=== PATIENT | male | born 1965 | race Caucasian/White ===

== ENCOUNTER 2024-07-18 00:51 | Day surgery (SDC) | payer BC, SELFPAY ==
[2024-07-11 10:09] VITALS: BMI 33.5
--- NOTE | 2024-07-11 10:29 | PC.NURSE ---
Spoke with _PATIENT_ regarding medication _PLAVIX_. _PATIENT_verbalizes understanding that the last dose is to be taken on _07/10/2024_ and the Endoscopist will instruct them when to restart after the procedure.
--- OUTSIDE RECORDS SUMMARY | 2024-07-18 00:54 | XMS_ITS | Clinical Summary ---
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 90 Cap 3 06/02/2016 Active Active Problems No known active problems Social History Tobacco Use Types Packs/Day Years Used Date Smoking Tobacco: Every Day Cigarettes 1 6 Smokeless Tobacco: Never Tobacco Cessation:Ready to Q uit: No; Counseling Given: No Alcohol Use Standard Drinks/Week Comments Yes 6 (1 standard drink = 0.6 oz pur e alcohol) Sexually Active Control Partners Comments Yes None Female Sex and Gender Information Value Date Recorded Sex Assigned at Not on file Legal Sex Male 11:38 AM [employer] Gender Identity Not on file Sexual Orientation Not on file Last Filed Vital Signs Vital Sign Reading Time Taken Comments Blood Pressure 122/78 06/02/2016 11:59 AM [employer] Pulse 78 06/02/2016 11:59 AM [employer] Temperature 36.3 ??C (97.4 ??F) 06/02/2016 11:[address] Respiratory Rate 18 06/02/2016 11:59 AM [employer] Oxygen Saturation 97% 06/02/2016 11:59 AM [employer] Inhaled Oxygen Concentration - - Weight 102.1 kg (225 lb) 06/02/2016 11:59 AM [employer] Height 180.3 cm (5' 11 ) 06/02/2016 11:59 AM [employer] Body Mass Index 31.38 06/02/2016 11:59 AM [employer] Plan of Treatment Health Maintenance Due Date Last Done Comments Hepatitis C Virus (HCV) Screening 1965 TdaP Immunization 1965 Hepatitis B Immunization (1 of 3 - 19+ 3-dose series) 1984 Colonoscopy 2010 Colorectal Cancer Screening 2010 Cologuard 2015 Immunochemical Fecal Occult Blood 2015 Pneumococcal Immunization (5 0+ years) (1 of 1 - PCV) 2015 Zoster Immunization (1 of 2) 2015 PSA Discussion 2020 Influenza Immunization (#1) 2024 SARS-COV-2 Immunization (1 - season) 2024 Respiratory Syncytial Virus (RSV) Immunization (Adult) (1 - 1-dose 75+ series) 2040 Meningococcal Immunization (ACWY) Aged Out No longer eligible based on patient's age to complete this topic Pneumococcal Immunization Combined Aged Out No longer eligible based on patient's age to complete this topic Rotavirus Immunization Aged Out No lo nger eligible based on patient's age to complete this topic Care Teams Heavy Forger Helper Relationship Specialty Start Date End Date Ha Shields MD [address] [facility] [address] [place] [id number] PCP - General Internal Medicine 06/02/16
--- OUTSIDE RECORDS SUMMARY | 2024-07-18 00:54 | XMS_ITS | CONTINUITY OF CARE DOCUMENT ---
Author Name shaista, shaista Address Unknown Organization [facility] Address [address] [place] [address] Phone [phone] Care Team Providers Care Cocoa Room Operator Name Role Phone Rosemary Smith MD Unavailable JUICE ALFARO MD Unavailable JUICE ALFARO MD Unavailable [phone] PROBLEMS Condition Status Date Provider Notes Hyperlipidemia active Rusty Jimenez MD PREDIABETES; active Rusty Jimenez MD CHEST PAIN--echo ef 66%, nl perfusion, marked htn, 03/2021 active Rosemary Smith MD Tobacco abuse active Rosemary Smith MD Snoring active Rosemary Smith MD FAMILY HISTORY OF HEART DISEASE active Noe Smith MD Abnormal EKG active Rosemary Smith MD Obesity active Rosemary Smith MD CAD s/p PTCA LENI x2 in dRCA and diag 06/17/18 active Elfego Santa MD Essential hypertension active Toney Antonio ENCOUNTERS Date Type Provider Location Encounter Diag nosis - In-person encounter Office Visit Rosemary Smith MD [facility] Essential hypertension - In-person encounter Office Visit Rosemary Smith MD [facility] CHEST PAIN--echo ef 66%, nl perfusion, marked htn, 03/2021 - In-person encounter Office Visit Rosemary Smith MD [facility] CHEST PAIN--echo ef 66%, nl perfusion, marked htn, 03/2021 - In-person encounter Office Visit Rosemary Smith MD [facility] - In-person encounter Office Visit Rosemary Smith MD [facility] - In-person encounter Office Visit Elfego Santa MD [facility] CAD s/p PTCA LENI x2 in dRCA and diag 06/17/18 - In-person encounter Office Visit Rosemary Smith MD [facility] CHEST PAIN--echo ef 66%, nl perfusion, marked htn, 03/2021Tobacco abuseSnoringFAMILY HISTORY OF HEART DISEASEAbnormal EKGObesity VITAL SIGNS Date Observation Value Provider Body Mass Index (Ratio) 33.33 kg/m2 Noe Smith MD blood pressure, cuff size large De vinod Ocasio blood pressure, diastolic 90 mm[Hg] De vinod Amarjit blood pressure, systolic 160 mm[Hg] [facility] ji Amarjit oxygen saturation, oximetry 97 % Britt Ocasio pulse rate 100 /min Britt acuña respiratory rate E&M 16 /min Yudy Ocasio weight E&M 239 [lb_av] Britt acuña height E&M 71 [in_i] Britt acuña Body Mass Index (Ratio) 36.26 kg/m2 Noe Smith MD blood pressure, cuff size large Tr enrico Urrutia blood pressure, diastolic 88 mm[Hg] Tr enrico Urrutia blood pressure, systolic 170 mm[Hg] Try anne-marie Urrutia oxygen saturation, oximetry 97 % Rocio Urrutia respiratory rate E&M 18 /min Rocio Urrutia pulse rate 84 /min Rocio Urrutia weight E&M 260 [lb_av] Rocio Urrutia height E&M 71 [in_i] Darylanne-marie Urrutia Body Mass Index (Ratio) 35.84 kg/m2 Noe Smith MD blood pressure, diastolic 80 mm[Hg] Li nkLogic blood pressure, systolic 140 mm[Hg] Jennifer kLogic blood pressure, cuff size regular Cy breanna Betancourt blood pressure, diastolic 80 mm[Hg] Cy breanna Betancourt blood pressure, systolic 140 mm[Hg] Yanna nancy Betancourt oxygen saturation, oximetry 96 % Di Betancourt respiratory rate E&M 16 /min Dinancy Betancourt pulse rate 88 /min Di Jeronimo l weight E&M 257 [lb_av] Dinancy Lowebel l height E&M 71 [in_i] Di Lowebel l Body Mass Index (Ratio) 35.90 kg/m2 Noe Smith MD blood pressure, diastolic 92 mm[Hg] James Maomarjan Xavier blood pressure, systolic 158 mm[Hg] Sugey Xavier oxygen saturation, oximetry 97 % Isabel Xavier respiratory rate E&M 18 /min Power alvarez Xavier pulse rate 80 /min Isabel Al delfina weight E&M 257.4 [lb_av] Isabel Bishop chikis height E&M 71 [in_i] Isabel Al tianon Body Mass Index (Ratio) 36.40 kg/m2 Noe Smith MD blood pressure, diastolic 80 mm[Hg] Demar Matta blood pressure, systolic 118 mm[Hg] Esa Wattersam oxygen saturation, oximetry 98 % Jewel Matta respiratory rate E&M 16 /min Jewel Matta pulse rate 83 /min Posen Matta weight E&M 261 [lb_av] Posen Matta height E&M 71 [in_i] Jewel Matta Body Mass Index (Ratio) 36.12 kg/m2 Pedro Santa MD blood pressure, diastolic 80 mm[Hg] Da felipa Morgan blood pressure, systolic 132 mm[Hg] Dac ia Morgan oxygen saturation, oximetry 94 % Mireya Morgan respiratory rate E&M 16 /min Mireya V oss pulse rate 76 /min Mireya Morgan weight E&M 259 [lb_av] Mireya Morgan height E&M 71 [in_i] Mireya Morgan Body Mass Index (Ratio) 36.26 kg/m2 Noe Smith MD blood pressure, cuff size small Cy breanna Betancourt blood pressure, diastolic 88 mm[Hg] Cy breanna Betancourt blood pressure, systolic 140 mm[Hg] Yanna nancy Betancourt oxygen saturation, oximetry 97 % Di Betancourt respiratory rate E&M 16 /min Di Betancourt pulse rate 72 /min Di Lowebel l weight E&M 260 [lb_av] Di Lowebel l height E&M 71 [in_i] Di Campbel l ALLERGIES No Known Drug Allergies RESULTS Date Observation Value Provider Reference Range Interpretation Location hemoglobin A1C, blood, as % of total hemoglobin 6.3 % [facility] 4.8-5.6 High lipoprotein, beta, serum, point, quantitative, calculated 51 mg/dL [facility] 0-99 HDL cholesterol, serum 41 mg/dL [facility] >39 triglyceride, serum, random 110 mg/dL [facility] 0-149 cholesterol, serum 112 mg/dL [facility] [phone]/11/ 25 basophil count, absolute 0.1 x10E3/uL [facility] 0.0-0.2 Eosinophil Absolute Count 0.2 X10E3/UL [facility] 0.0-0.4 monocyte count, blood, automated 0.7 X10E3/UL [facility] 0.1-0.9 lymphocyte count, blood, automated 2.6 X10E3/UL [facility] 0.7-3.1 Absolute Neutrophils 5.8 X10E3/UL [facility] 1.4-7.0 basophils as percent of blood leukocytes 1 % [facility] Not Estab. eosinophils as percent of blood leukocytes 2 % [facility] Not Estab. monocytes as percent of blood leukocytes 7 % [facility] Not Estab. lymphocytes as percent of blood leukocytes 28 % [facility] Not Estab. neutrophils as percent of blood leukocytes 62 % [facility] Not Estab. platelet count 254 X10E3/UL [facility] [phone]/11/ 25 red blood cell distribution width 12.4 % [facility] 11.6-15.4 mean corpuscular hemoglobin concentration, RBC 35.0 G/DL [facility] 31.5-35.7 mean corpuscular hemoglobin, RBC 32.9 pg [facility] 26.6-33.0 mean corpuscular volume, RBC 94 fL [facility] 79-97 hematocrit, blood 42.3 % [facility] 37.5-51.0 hemoglobin, blood 14.8 g/dL [facility] 13.0-17.7 erythrocyte (RBC) count 4.50 X10E6/UL [facility] 4.14-5.80 leukocyte count, blood 9.4 X10E3/UL [facility] 3.4-10.8 alanine aminotransferase (SGPT), serum 55 1/L [facility] 0-44 High aspartate aminotransferase (SGOT), serum 32 1/L [facility] 0-40 alkaline phosphatase, serum 125 1/L [facility] 44-121 High bilirubin, serum, total 0.4 mg/dL [facility] 0.0-1.2 albumin/globulin ratio, serum 2.4 [facility] 1.2-2.2 High globulin, serum 2.0 [facility] 1.5-4.5 albumin, serum 4.7 g/dL [facility] 3.8-4.9 protein, total, serum 6.7 g/dL [facility] 6.0-8.5 calcium, serum 9.5 mg/dL [facility] 8.7-10.2 carbon dioxide, venous blood 19 mmol/L [facility] 20-29 Low chloride, serum 102 mmol/L [facility] 96-106 potassium, serum 4.5 mmol/L [facility] 3.5-5.2 sodium, serum 137 mmol/L [facility] 778-657 9464/11/ 25 urea nitrogen/creatinine ratio, serum 8 [facility] 9-20 Low eGFR if 115 mL/min/{1 .73_m2} [facility] >59 eGFR if not 99 mL/min/{1 .73_m2} [facility] >59 creatinine, serum 0.83 mg/dL [facility] 0.76-1.27 urea nitrogen, blood 7 mg/dL [facility] 6-24 blood glucose, random 104 mg/dL [facility] 65-99 High hemoglobin A1C, blood, as % of total hemoglobin 5.9 % [facility] 4.8-5.6 High lipoprotein, beta, serum, point, quantitative, calculated 69 mg/dL [facility] 0-99 very low density lipoproteins 52 mg/dL [facility] 5-40 High HDL cholesterol, serum 35 mg/dL [facility] >39 Low triglyceride, serum, random 258 mg/dL [facility] 0-149 High cholesterol, serum 156 mg/dL [facility] 018-876 4458/04/ 17 platelet count 238 X10E3/UL [facility] 239-571 7398/04/ 17 red blood cell distribution width 13.0 % [facility] 12.3-15.4 mean corpuscular hemoglobin concentration, RBC 34.1 G/DL [facility] 31.5-35.7 mean corpuscular hemoglobin, RBC 32.9 pg [facility] 26.6-33.0 mean corpuscular volume, RBC 97 fL [facility] 79-97 hematocrit, blood 41.1 % [facility] 37.5-51.0 hemoglobin, blood 14.0 g/dL [facility] 13.0-17.7 erythrocyte (RBC) count 4.26 X10E6/UL [facility] 4.14-5.80 leukocyte count, blood 9.5 X10E3/UL [facility] 3.4-10.8 alanine aminotransferase (SGPT), serum 43 1/L [facility] 0-44 aspartate aminotransferase (SGOT), serum 28 1/L [facility] 0-40 alkaline phosphatase, serum 126 1/L [facility] 39-117 High bilirubin, serum, total 0.3 mg/dL [facility] 0.0-1.2 albumin/globulin ratio, serum 2.6 [facility] 1.2-2.2 High globulin, serum 1.8 [facility] 1.5-4.5 albumin, serum 4.6 g/dL [facility] 3.5-5.5 protein, total, serum 6.4 g/dL [facility] 6.0-8.5 calcium, serum 9.4 mg/dL [facility] 8.7-10.2 carbon dioxide, venous blood 20 mmol/L [facility] 20-29 chloride, serum 102 mmol/L [facility] 96-106 potassium, serum 4.3 mmol/L [facility] 3.5-5.2 sodium, serum 138 mmol/L [facility] [phone]/04/ 17 urea nitrogen/creatinine ratio, serum 12 [facility] 9-20 eGFR if 117 mL/min/{1 .73_m2} [facility] >59 eGFR if not 101 mL/min/{1 .73_m2} [facility] >59 creatinine, serum 0.82 mg/dL [facility] 0.76-1.27 urea nitrogen, blood 10 mg/dL [facility] 6-24 blood glucose, random 111 mg/dL [facility] 65-99 High coagulation managed by Davin Baez RN international normalized ratio (INR) 1.0 Davin Baez RN Normal prothrombin time (patient) 12.2 s Davin Baez RN free thyroxine index 1.8 [facility] 1.2-4.9 triiodothyronine resin uptake 25 % [facility] 24-39 thyroxine, serum, total 7.2 ug/dL [facility] 4.5-12.0 thyroid stimulating hormone, serum 2.090 u[IU]/mL [facility] 0.450-4.500 hemoglobin A1C, blood, as % of total hemoglobin 6.2 % [facility] 4.8-5.6 High lipoprotein, beta, serum, point, quantitative, calculated 138 mg/dL [facility] 0-99 High very low density lipoproteins 25 mg/dL [facility] 5-40 HDL cholesterol, serum 36 mg/dL [facility] >39 Low triglyceride, serum, random 127 mg/dL [facility] 0-149 cholesterol, serum 199 mg/dL [facility] 811-221 3211/12/ 18 basophil count, absolute 0.1 x10E3/uL [facility] 0.0-0.2 Eosinophil Absolute Count 0.1 X10E3/UL [facility] 0.0-0.4 monocyte count, blood, automated 0.6 X10E3/UL [facility] 0.1-0.9 lymphocyte count, blood, automated 2.5 X10E3/UL [facility] 0.7-3.1 Absolute Neutrophils 5.0 X10E3/UL [facility] 1.4-7.0 basophils as percent of blood leukocytes 1 % [facility] Not Estab. eosinophils as percent of blood leukocytes 1 % [facility] Not Estab. monocytes as percent of blood leukocytes 7 % [facility] Not Estab. lymphocytes as percent of blood leukocytes 31 % [facility] Not Estab. neutrophils as percent of blood leukocytes 60 % [facility] Not Estab. platelet count 250 X10E3/UL [facility] [phone]/12/ 18 red blood cell distribution width 12.8 % [facility] 12.3-15.4 mean corpuscular hemoglobin concentration, RBC 34.2 G/DL [facility] 31.5-35.7 mean corpuscular hemoglobin, RBC 32.2 pg [facility] 26.6-33.0 mean corpuscular volume, RBC 94 fL [facility] 79-97 hematocrit, blood 41.5 % [facility] 37.5-51.0 hemoglobin, blood 14.2 g/dL [facility] 13.0-17.7 erythrocyte (RBC) count 4.41 X10E6/UL [facility] 4.14-5.80 leukocyte count, blood 8.3 X10E3/UL [facility] 3.4-10.8 alanine aminotransferase (SGPT), serum 34 1/L [facility] 0-44 aspartate aminotransferase (SGOT), serum 28 1/L [facility] 0-40 alkaline phosphatase, serum 111 1/L [facility] 39-117 bilirubin, serum, total 0.4 mg/dL [facility] 0.0-1.2 albumin/globulin ratio, serum 2.3 [facility] 1.2-2.2 High globulin, serum 2.0 [facility] 1.5-4.5 albumin, serum 4.5 g/dL [facility] 3.5-5.5 protein, total, serum 6.5 g/dL [facility] 6.0-8.5 calcium, serum 9.3 mg/dL [facility] 8.7-10.2 carbon dioxide, venous blood 22 mmol/L [facility] 20-29 chloride, serum 102 mmol/L [facility] 96-106 potassium, serum 4.6 mmol/L [facility] 3.5-5.2 sodium, serum 140 mmol/L [facility] 061-217 6904/12/ 18 urea nitrogen/creatinine ratio, serum 8 [facility] 9-20 Low eGFR if 113 mL/min/{1 .73_m2} [facility] >59 eGFR if not 98 mL/min/{1 .73_m2} [facility] >59 creatinine, serum 0.89 mg/dL [facility] 0.76-1.27 urea nitrogen, blood 7 mg/dL [facility] 6-24 blood glucose, random 100 mg/dL [facility] 65-99 High HISTORY OF MEDICATION USE Medication Status Instructions Dates Provider Indications Com ments clopidogrel 75 mg tablet active Take 1 tablet by mouth once a day due for follow up Elly Mayer ergocalciferol (vitamin D2) 1,250 mcg (50,000 unit) capsule active TAKE 1 CAPSULE BY MOUTH 1 TIME EVERY WEEK Yony danielle losartan-hydrochl orothiazide 100-25 mg tablet active TAKE 1 TABLET BY MOUTH EVERY DAY Britt Ocasio losartan-hydrochl orothiazide 50-12.5 mg tablet completed TAKE 1 TABLET BY MOUTH EVERY DAY - Britt Ocasio clopidogrel 75 mg tablet completed Take 1 tablet by mouth once a day TAKE 1 TABLET BY MOUTH EVERY DAY - Elly Mayer ergocalciferol (vitamin D2) 1,250 mcg (50,000 unit) capsule completed TAKE 1 CAPSULE BY MOUTH ONCE PER WEEK - Yony Galarza Vitamin D2 1,250 mcg (50,000 unit) capsule completed TAKE 1 TABLET BY MOUTH WEEKLY - Toney Antonio losartan-hydrochl orothiazide 100-25 mg tablet completed Take 1 tablet by mouth once a day - Britt Ocasio metformin 500 mg tablet active Take 1 tablet by mouth once a day Toney Antonio atorvastatin 80 mg tablet active TAKE 1 TABLET BY MOUTH EVERY DAY Lynette Montgomery clopidogrel 75 mg tablet completed TAKE 1 TABLET BY MOUTH EVERY DAY - Nadja Fajardo NICOTINE STEP 2 14 MG/24HR TRANSDERMAL PATCH 24 HOUR completed apply one patch daily - Isabel Xavier CHANTIX CONTINUING MONTH SRIRAM 1 MG ORAL TABLET completed fololow instructions on packet - Jewel Matta CHANTIX STARTING MONTH SRIRAM 0.5 MG X 11 & 1 MG X 42 ORAL TABLET completed follow instructions on packet - Jewel Matta AMLODIPINE BESYLATE 5 MG ORAL TABLET completed take once daily - Isabel Xavier Plavix 75 mg tablet completed 1 tablet by mouth once a day - Michelle Pal TOPROL XL 50 MG ORAL TABLET EXTENDED RELEASE 24 HOUR completed ONE TAB DAILY - Mireya Mora aspirin 81 mg tablet,delayed release (DR/EC) active 1 tablet by mouth once a day Elfego Santa MD Lipitor 80 mg tablet completed 1 tablet by mouth once a day - Elfego Santa MD SOCIAL HISTORY Date Observation Value Provider social history E&M S moking History: P atient currently smokes every day. P atient has been counseled to quit. Toney Antonio smoking/tobacco cess ation, patient education and counseling yes Britt Ocasio number of years as a smoker 20 a Britt Ocasio smoking history, tot al pack/day 1 PPD Britt Ocasio cigarette use yes Britt Jacobs nd smoking status Current every day smoker Abilio Ocasio social history reviewed E&M revi ewed - no changes required Toney Antonio social history reviewed E&M revi ewed - no changes required Toney Antonio social history E&M S moking History: P atient currently smokes every day. P atient has been counseled to quit. Toney Antonio smoking/tobacco cess ation, patient education and counseling yes Di Serafin number of years as a smoker 20 a Di Betancourt smoking history, tot al pack/day 1 PPD Di Serafin cigarette use yes Di Hardeep santacruz smoking status Current every day smoker Raphael robinsonirma Betancourt social history reviewed E&M revi ewed - no changes required Toney Antonio social history reviewed E&M revi ewed - no changes required Rosemary Smith MD smoking/tobacco cess ation, patient education and counseling yes Isabel Xavier number of years as a smoker 20 a Isabel Xavier smoking history, tot al pack/day 1 PPD Isabel Xavier cigarette use yes Isabel diop smoking status Current every day smoker Abilio Mani Xavier social history E&M S moking History: P atient currently smokes every day. P atient has been counseled to quit. Rosemary Smith MD social history reviewed E&M revi ewed - no changes required Rosemary Smith MD number of grandchildren Rosemary Oropeza farhad Matta smoking/tobacco cess ation, patient education and counseling yes Jewel Matta number of years as a smoker 20 a Jewel Matta smoking history, tot al pack/day 1 PPD Jewel Matta cigarette use yes Jewel Matta smoking status Current every day smoker Sandip llamas Matta number of grandchildren Elfego Santa MD smoking status Current every day smoker Neville Santa MD social history E&M S moking History: P atient currently smokes every day. P atient has been counseled to quit. Elfego Santa MD social history reviewed E&M revi ewed - no changes required Elfego Santa MD smoking/tobacco cess ation, patient education and counseling yes Mireya Morgan number of years as a smoker 20 a Mireya Morgan smoking history, tot al pack/day 1 PPD Mireya Morgan cigarette use yes Mireya Morgan social history reviewed E&M revi ewed - no changes required Rosemary Smith MD social history E&M S moking History: P atient currently smokes every day. P atient has been counseled to quit. Rosemary Smith MD smoking/tobacco cess ation, patient education and counseling yes Rosemary Smith MD number of years as a smoker 20 a Diirma Betancourt smoking history, tot al pack/day 1 PPD Di Betancourt cigarette use yes Di santacruz smoking status Current every day smoker Raphael Betancourt FUNCTIONAL STATUS Date Observation Value Provider HRA, CV Assess/Plan, Angina (inactive) Management Plan continue current therapy Toney Antonio HRA, CV Assess/Plan, Angina (inactive) Management Plan continue current therapy Toney Ahmedzai HRA, CV Assess/Plan, Angina (inactive) Management Plan continue current therapy Toney Ahmedzai HRA, CV Assess/Plan, Angina (inactive) Management Plan continue current therapy Rosemary Smith MD HRA, CV Assess/Plan, Angina (inactive) Management Plan continue current therapy Rosemary Smith MD HRA, CV Assess/Plan, Angina (inactive) Management Plan continue current therapy Elfego Santa MD FAMILY HISTORY Family Member Condition Father Family History of Co ronary Artery Disease: INSURANCE PROVIDERS Payer name Policy type / Coverage type [place] red green party ID [facility] [id number] [place] 9 [id number] ADVANCE DIRECTIVES Name Date POWER OF [employer] Date Name Performer [id number],S, Toney Ahmedza i [id number],S, Toney Ahmedza i [id number],S, Toney Ahmedza i [id number],S, Toney Ahmedza i [id number],S, Toney Ahmedza i [id number],S, Toney Ahmedza i [id number],S, Toney Ahmedza i [id number],S, Toney Ahmedza i [id number],S, Toney Ahmedza i [id number],S, Toney Ahmedza i [id number],S, Toney Ahmedza i [id number],S, Toney Ahmedza i [id number],S, Toney Ahmedza i [id number],S, Toney Ahmedza i [id number],S, Toney Ahmedza i [id number],W, Toney Ahmedza i Cardiology Toney Ahmedzai Cardiology Toney Ahmedzai Cardiology Toney Ahmedzai Cardiology Toney Ahmedzai Cardiology Toney Ahmedzai Cardiology Toney Ahmedzai Cardiology Toney Ahmedzai Cardiology Toney Ahmedzai Cardiology Toney Ahmedzai Cardiology Toney Ahmedzai Cardiology Toney Ahmedzai Cardiology Toney Ahmedzai Cardiology Toney Ahmedzai Cardiology Toney Ahmedzai Cardiology Toney Ahmedzai Cardiology Rosemary Smith MD Cardiology Rosemary Smith MD Cardiology Rosemary Smith MD Cardiology Rosemary Smith MD Cardiology Rosemary Smith MD Cardiology Rosemary Smith MD Cardiology Rosemary Smith MD Cardiology Rosemary Smith MD Cardiology Rosemary Smith MD Cardiology Rosemary Smith MD Cardiology Rosemary Smith MD Cardiology hospital follow up: d enies chest pain, sob. feeling much better. 1. Multi-vessel atherosclerotic coronary artery disease with 95% distal RCA stenosis, 30% mid LAD s tenosis, 80% 1st diagonal branch stenosis. IFR positive of 1st diagonal branch. IFR negative LAD s tenosis. 2 . Successful PTCA drug-eluting stent, distal RCA without complication. Successful PTCA drug-eluting s tent diagonal branch without complication. The following medications were removed from the medication list: Toprol Xl 50 Mg Oral Tablet Extended Release 24 Hour (Metoprolol succinate) ..... One tab daily His updated medication list for this problem includes: Amlodipine Besylate 5 Mg Oral Tablet (Amlodipine besylate) ..... Take once daily Plavix 75 Mg Oral Tablet (Clopidogrel bisulfate) ..... One tab. daily Aspirin Adult Low Dose 81 Mg Oral Tablet Delayed Release (Aspirin) ..... One tab by mouth daily Elfego Santa MD [facility] follow up: n o recurrences. The following medications were removed from the medication list: Toprol Xl 50 Mg Oral Tablet Extended Release 24 Hour (Metoprolol succinate) ..... One tab daily His updated medication list for this problem includes: Amlodipine Besylate 5 Mg Oral Tablet (Amlodipine besylate) ..... Take once daily Plavix 75 Mg Oral Tablet (Clopidogrel bisulfate) ..... One tab. daily Aspirin Adult Low Dose 81 Mg Oral Tablet Delayed Release (Aspirin) ..... One tab by mouth daily Elfego Santa MD [facility] follow up: d own to 0.5ppd. will start chantix. he has quit cold turkey twice before for a few years. Elfego Santa MD [facility] follow up Zan Santa MD Cardiology New Patient Rosemary don MD Cardiology New Patient Rosemary don MD Cardiology New Patient Rosemary don MD Cardiology New Patient Rosemary don MD Cardiology New Patie nt : t wo recent episodes or burning sensations in chest that resolved with rest and an aspirin. will chekc stress test and echo. Rosemary Smith MD Date Name Vitamin D, 25-Hydrox y TSH, free T4, total T3 LIPID PANEL CBC (INCLUDES DIFF/P LT) HEMOGLOBIN A1c COMPREHENSIVE METABO LIC PANEL, W/EGFR Stress Exercise Card iolite Stress Exercise Card iolite Vitamin D, 25-Hydrox y HEMOGLOBIN A1c LIPID PANEL COMPREHENSIVE METABO LIC PANEL, W/EGFR CBC (INCLUDES DIFF/P LT) CBC (H/H, RBC, INDIC ES, WBC, PLT) COMPREHENSIVE METABO LIC PANEL, W/EGFR HEMOGLOBIN A1c LIPID PANEL Complete Echo Cardiac Cath - Left - [facility] PROTHROMBIN TIME WIT H INR CBC (INCLUDES DIFF/P LT) HEMOGLOBIN A1c THYROID PANEL WITH T SH, 3RD GENERATION LIPID PANEL COMPREHENSIVE METABO LIC PANEL, W/EGFR Complete Echo Stress Exercise Card iolite HISTORY OF PROCEDURES Procedure Date Procedure Name Provider Procedure Notes S tatus EKG Rosemary Smith MD completed Cardiolite, 2 units Rosemary Smith MD completed SPECT Images Juan M Ward MD completed Stress EKG Rusty Jimenez MD complete d Protime Rusty Jimenez MD complete d
--- OUTSIDE RECORDS SUMMARY | 2024-07-18 00:55 | XMS_ITS | Encounter Summary ---
Author Organization [facility] Address [address] [place] [address]. [place], [place] [id number] [place] [address] Care Team Providers Care Resident Manager Name Role Phone Ha Shields MD Primary Care Provider [phone] Encounter Details Date Type Department Care Team (Latest Contact Info) Description 04/16/2023 Real Matterst Message Enc [facility] Multispecialty Care - [facility] [address] [facility], [address] [place] [id number] Tosin Jack MD [address] [place] [address] Billing for Rafa Herrerake Social History Tobacco Use Types Packs/Day Years Used Date Smoking Tobacco: Every Day Cigarettes 0.5 20 Smokeless Tobacco: Never Alcohol Use Standard Drinks/Week Comments Yes 3.3 (1 standard drink = 0.6 oz p ure alcohol) occasionally PHQ-2 Answer Date Recorded Patient Health Questionnaire-2 Score 0 10/13/2022 Sex and Gender Information Value Date Recorded Sex Assigned at Not on file Legal Sex Male 1:01 PM CDT Gender Identity Not on file Sexual Orientation Not on file documented as of this encounter Plan of Treatment Not on file documented as of this encounter Visit Diagnoses Not on filedocumented in this encounter Care Teams Resident Manager Relationship Specialty Start Date End Date Ha Shields MD [address] [id number] PCP - General INTERNAL MEDICINE 07/03/22 documented as of this encounter
--- OUTSIDE RECORDS SUMMARY | 2024-07-18 00:55 | XMS_ITS | Clinical Summary ---
Author Organization [facility] Address [address] [place] [address]. 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 Name Role Phone Ha Shields MD Primary Care Provider [phone] Allergies No known active allergies Medications HYDROcodone-acet aminophen (NORCO) 5-325 MG tablet 01/06/2022 Active LORazepam (ATIVAN) 1 MG tablet 06/21/2022 Active metFORMIN (GLUCOPHAGE) 500 MG tablet 06/09/2022 Active atorvastatin (LIPITOR) 80 MG tablet 04/04/2022 Active losartan-hydroCH LOROthiazide (HYZAAR) 100-25 MG tablet 02/16/2022 Active clopidogrel (PLAVIX) 75 MG tablet 06/14/2022 Active vitamin D2, ergocalciferol, (DRISDOL) 46924 UNITS capsule 02/01/2022 Activ e aspirin 81 MG chewable tablet Chew 1 tablet (81 mg total) by mouth daily. Active Active Problems Problem Noted Date Diagnosed Date Stenosis of right vertebral artery 11/15/2022 Essential hypertension 12/05/2021 Atherosclerotic heart diseas e of [place] coronary artery without angina pectoris 06/24/2018 Diabetes mellitus ([facility]) 06/13/2018 Hyperlipidemia 06/13/2018 Abnormal EKG 06/03/2018 Chest pain, unspecified 06/03/2018 Family history of heart disease 06/03/2018 Obesity 06/03/2018 Snoring 06/03/2018 Tobacco dependence syndrome 06/03/2018 Immunizations Name Administration Dates Next Due Influenza (Generic) 04/06/2014 Influenza Adult (Generic) 04/06/2021 Td (TDVAX) 01/24/2016 Social History Tobacco Use Types Packs/Day Years Used Date Smoking Tobacco: Every Day Cigarettes 0.5 20 Smokeless Tobacco: Never Tobacco Cessation:Ready to Q uit: Yes; Counseling Given: Yes Alcohol Use Standard Drinks/Week Comments Yes 3.3 [...] Sign Reading Time Taken Comments Blood Pressure 140/82 11/15/2022 2:55 PM CDT Pulse 144 11/15/2022 2:55 PM CDT Temperature 37.3 ??C (99.1 ??F) 10/13/2022 1 1:02 AM CDT Respiratory Rate - - Oxygen Saturation 95% 10/13/2022 11: 02 AM CDT Inhaled Oxygen Concentration - - Weight 110.4 kg (243 lb 6.4 oz) 11/15/2022 2:55 PM CDT Height 180.3 cm (5' 11 ) 11/15/2022 2: 55 PM CDT Body Mass Index 33.95 11/15/2022 2:55 PM CDT Plan of Treatment Health Maintenance Due Date Last Done Comments ASCVD LDL 1965 ASCVD Statin 1965 Colorectal Cancer Screening Colonoscopy (10 Years) 1965 Kidney Health Evaluation 1965 Hemoglobin A1C 1965 Lipid Panel 1965 Annual Physical 1968 Pneumococcal Vaccine: Pediatrics (0 to 5 Years) and At-Risk Patients (6 to 64 Years) (1 of 2 - PCV) 1971 Diabetes: Retinopathy Eye Exam 1983 Hepatitis C 1983 Zoster Vaccines (1 of 2) 2015 DTaP, Tdap and Td Vaccines ( 1 - Tdap) 01/25/2016 01/24/2016 PHQ-2 (Physician [place]) 10/14/2023 10/13/2022 COVID-19 Vaccine (2 - 2023-2 5 season) 2024 09/23/2020 Influenza Adult (#1) 2024 04/06/2021, 04/06/2014 PHQ-2 (Physician [place]) 06/18/2024 10/13/2022 Meningococcal B Vaccine Aged Out No l onger eligible based on patient's age to complete this topic Meningococcal Vaccine Aged Out No santiago carlee eligible based on patient's age to complete this topic RSV Immunizations Under 20 Months Aged Out No longer eligible b ased on patient's age to complete this topic Insurance [facility] Care Teams Motel Front Desk Attendant Relationship Specialty Start Date End Date Ha Shields MD [address] [address] PCP - General INTERNAL MEDICINE 07/03/22
--- OUTSIDE RECORDS SUMMARY | 2024-07-18 00:55 | XMS_ITS | Continuity of Care Document ---
Author Organization [facility] Address [address] [place] [address] [place] [address] Phone Care Team Providers Care Zoo Keeper Name Role Phone Mono Acharya DO Unavailable Unavailable Advance Directives Directive Yes / No Effective Date File Name No Information Encounters Encounter Description Practice Location Reason(s) For Visit Diagnoses Date Provider Providers Copied on Encounter [facility], [address], [place], [place], [id number], [place] tel:[phone] [facility] No Information [facility] Sprague. [address] [address] [facility], [place], [address], [place]. tel: [phone] Family History Family Member Type Diagnosis Age At Onset No Information Payers Payer name Insurance type Covered green party ID Authoriza tion(s) General Citizen Of [place] Commercial CI [id number] Social History Type Description Quantity Date Captured Comments Sex Male Smoking Status No Information Chief Complaint And Reason For Visit No Information Reason For Referral Reason For Referral No Information History Of Present Illness Encounter Date Complaint History Of Prese nt Illness No Information Functional Status Date Functional Assessmen t No Information Instructions Date Instruction Additional Infor mation No Information Assessments Type Assessment Date No Information Patient Care Teams Name Effective Dates (start - stop) Status Members No Information
[2024-07-18 06:47] VITALS: BP 132/83; PULSE 77; RESP 20; TEMP 36.3; O2SAT 98
[2024-07-18 07:01] LABS: Glucose Point of Care 116 mg/dl (65-105)
[2024-07-18] MEDS: LACTATED RINGERS 1,000 ML 150 ML IV CONT (07:01)
--- NOTE | 2024-07-18 07:44 | PM.IMHP ---
H&P: HPI History of Present Illness Date/Time: 07/18/24 07:44 Chief Complaint: Screening colonoscopy Narrative: This is the patient's 2nd colonoscopy, he had a colonoscopy for the 1st time 9 or 10 years ago.. There are no GI symptoms and there is no family history of colorectal cancer. Review of Systems Review of Systems: All systems reviewed & are unremarkable except as noted in HPI and below PMFSH Social History Social History Smoking packs per day: 1 Smoking cigarettes per day: 20.0 Years smoked: 10 Smoking pack-years: 10.00 Smoking status: Current every day smoker Tobacco type: cigarettes Alcohol intake: current Substance use: never Substance use type: does not use Living arrangements: with family Spiritual care concerns: No Meds Home Medications and Allergies Home Medications ?Medication ?Instructions ?Recorded ?Confirmed ?Type aspirin 81 mg capsule 81 mg PO DAILY 07/11/24 07/18/24 History atorvastatin 80 mg tablet 80 mg PO DAILY 07/11/24 07/18/24 History clopidogrel 75 mg tablet 75 mg PO DAILY 07/11/24 07/18/24 History hydrocodone 7.5 mg-acetaminophen 1 tablet PO Q8H PRN pain 07/11/24 07/11/24 History 325 mg tablet lorazepam 1 mg tablet 1 mg PO TID PRN anxiety 07/11/24 07/11/24 History losartan 100 1 tablet PO DAILY 07/11/24 07/18/24 History mg-hydrochlorothiazide 25 mg tablet metformin 500 mg tablet 500 mg PO DAILY 07/11/24 07/18/24 History Allergies Allergy/AdvReac Type Severity Reaction Status Date / Time No Known Allergies Allergy Verified 07/18/24 06:45 Vital Signs Vital Signs - 24 hr 07/18/24 06:47 Temperature 97.3 F L Pulse Rate 77 Respiratory Rate 20 Blood Pressure 132/83 Pulse Oximetry 98 Oxygen Delivery Room Air Exam Const: General: cooperative and healthy appearing Resp: Effort & Inspection: normal respiratory effort and able to speak in complete sentences Auscultation: clear to auscultation bilaterally Cardio: Rate: regular rate Rhythm: regular rhythm GI: Inspection: normal to inspection GI Palp: No No hepatosplenomegaly present Auscultation: normal bowel sounds Rectal Exam: deferred Skin: General skin exam: normal color Psych: Appearance: grossly normal Mental Status: mental status grossly normal Assessment and Plan Assessment and plan (1) Encounter for screening colonoscopy: Code(s): Z12.11 - Encounter for screening for malignant neoplasm of colon Status: Acute Assessment and Plan: The patient is deemed a good candidate for the procedure. Consent signed. Will proceed.
--- NOTE | 2024-07-18 07:45 | P.PNAN_ITS ---
Anes - Initial Pre Proc Eval Procedure: Operation Date: 07/18/24 08:00 Proposed Procedures p Colonoscopy - Mark Martin MD Date/Time: 07/18/24 07:45 Surgeon: Mark Martin MD Pre Op Diagnosis: HX of colon polyps Patient Data Age: 59 Gender: M Height: 1.8 m Weight: 108.6 kg Last Vital Signs Temp 36.3 C L 07/18/24 06:47 Pulse 77 07/18/24 06:47 Resp 20 07/18/24 06:47 BP 132/83 07/18/24 06:47 Pulse Ox 98 07/18/24 06:47 O2 Del Method Room Air 07/18/24 06:47 Allergies Allergy/AdvReac Type Severity Reaction Status Date / Time No Known Allergies Allergy Verified 07/18/24 06:45 Home Medications ?Medication ?Instructions ?Recorded ?Confirmed ?Type aspirin 81 mg capsule 81 mg PO DAILY 07/11/24 07/18/24 History atorvastatin 80 mg tablet 80 mg PO DAILY 07/11/24 07/18/24 History clopidogrel 75 mg tablet 75 mg PO DAILY 07/11/24 07/18/24 History hydrocodone 7.5 mg-acetaminophen 1 tablet PO Q8H PRN pain 07/11/24 07/11/24 History 325 mg tablet lorazepam 1 mg tablet 1 mg PO TID PRN anxiety 07/11/24 07/11/24 History losartan 100 1 tablet PO DAILY 07/11/24 07/18/24 History mg-hydrochlorothiazide 25 mg tablet metformin 500 mg tablet 500 mg PO DAILY 07/11/24 07/18/24 History Laboratory Tests 07/18/24 06:52 POC Capillary Glucose 116 H mg/dl (65-105) Patient hx anesthesia problems: none Family hx anesthesia problems: none Results Review: All pre-operative results and documents have been reviewed as part of the pre-operative evaluation. [facility] Social History Social History Smoking packs per day: 1 Smoking cigarettes per day: 20.0 Years smoked: 10 Smoking pack-years: 10.00 Smoking status: Current every day smoker Tobacco type: cigarettes Alcohol intake: current Substance use: never Substance use type: does not use Living arrangements: with family Spiritual care concerns: No Anes - Eval Final PreProcedure Day of Procedure 07/18/24 07:45 Patient weight: obese Heart: regular rate and rhythm Lungs: decreased breath sounds Airway: Mallampati scale class II Neurological: alert and oriented Last oral intake: >/= 8 hours ASA classification: III Emergent: no Anesthetic plan: proceed Anesthesia type and monitoring: general GIVS and standard monitoring Results Review: All pre-operative results and documents have been reviewed as part of the pre- operative evaluation. Informed Consent: The patient's anesthetic plan and its attendant risks and benefits were discussed with the patient/family/POA. Questions were solicited and answers provided to the satisfaction of the patient/family/POA.
[2024-07-18 08:08] VITALS: BP 113/60; PULSE 68; RESP 21; O2SAT 93
[2024-07-18 08:18] VITALS: BP 123/70; PULSE 66; RESP 21; O2SAT 96
[2024-07-18 08:28] VITALS: BP 126/78; PULSE 66; RESP 17; O2SAT 97
== END 2024-07-18 08:34 | disposition home or self-care (01) ==
PROVIDERS: PCP Internal Medicine; Visit Provider Internal Medicine Gastroenterology
PROC: 0DJD8ZZ Inspection of Lower Intestinal Tract, Via Natural or Artificial Opening Endoscopic (ICD-10-PCS; CPT 45378; principal; 2024-07-18 08:00)
DX: Z12.11 Encounter for screening for malignant neoplasm of colon (principal); D12.2 Benign neoplasm of ascending colon; D12.4 Benign neoplasm of descending colon; F17.210 Nicotine dependence, cigarettes, uncomplicated; E66.9 Obesity, unspecified; Z68.33 Body mass index [BMI] 33.0-33.9, adult; Z79.82 Long term (current) use of aspirin; Z79.02 Long term (current) use of antithrombotics/antiplatelets; Z79.891 Long term (current) use of opiate analgesic; Z79.84 Long term (current) use of oral hypoglycemic drugs
CPT/HCPCS: 45385; 82948; 88305; J2003; J2704; J7120